=== PATIENT | female | born 1970 | race Caucasian/White ===

== ENCOUNTER 2021-02-16 15:59 | Emergency (ER) | payer OTHER ==
[~2021-02-16] VITALS: Ht 160 cm; Wt 90.7 kg
[2021-02-16] MEDS ORDERED: PRILOSEC OTC20 MG PO (16:16)
[2021-02-16] MEDS ORDERED: LIPITOR10 MG PO (16:17)
[2021-02-16] MEDS ORDERED: VIIBRYD20 MG PO (16:17)
[2021-02-16] MEDS ORDERED: ZESTRIL10 MG PO (16:17)
[2021-02-16 16:44] LABS: ABSOLUTE BASOPHILS 0.1 thou/uL (0.0-0.2); ABSOLUTE LYMPHOCYTES 4.9 thou/uL (0.8-5.3); ABSOLUTE MONOCYTES 0.8 thou/uL (0.0-1.2); ABSOLUTE NEUTROPHILS 4.7 thou/uL (1.6-8.1); BASOPHILS 0.8 %; EOSINOPHILS 0.3 %; HEMATOCRIT 41.7 % (37.0-47.0); HEMOGLOBIN 14.1 gm/dL (12.0-15.0); LYMPHOCYTES 46.2 %; MCH 28.7 pg (26.0-34.0); MCHC 33.7 g/dL (28.0-37.0); MONOCYTES 7.7 %; MPV 8.5 fl. (7.2-11.1); NUCLEATED RBCS 0 /100WBC; PLATELET COUNT* 295 thou/uL (150-400); RDW-CV 15.8 % (10.5-14.5); WBC 10.5 thou/uL (4.0-11.0)
[2021-02-16 17:17] LABS: CALCIUM 9.9 mg/dL (8.5-10.1); CREATININE 1.1 mg/dL (0.6-1.3); POTASSIUM 3.2 mmol/L (3.5-5.1)
[2021-02-16] MEDS ORDERED: HYDROCODON-ACE1 EAC7 PO (17:30)
[2021-02-16 17:46] VITALS: BP 164/75
--- NOTE | 2021-02-17 11:28 | EKG ---
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
== END 2021-02-16 17:40 | disposition home or self-care (01) ==
LOC: M.ERS 15:59
PROVIDERS: Emergency Medicine Emergency Medical Services
DX: M54.12 Radiculopathy, cervical region (principal)

== ENCOUNTER → 2021-08-03 | Outpatient (CLI) | payer OTHER ==
[~2021-08-03] MED LIST: HYDROCODON-ACE1 EAC7 PO; LIPITOR10 MG PO; PRILOSEC OTC20 MG PO; VIIBRYD20 MG PO; ZESTRIL10 MG PO
== END ==
LOC: M.CT 14:15
PROVIDERS: ATTEND Specialist
DX: R10.31 Right lower quadrant pain (principal); R11.0 Nausea; R50.9 Fever, unspecified